=== PATIENT | female | born 1950 | race Caucasian/White ===

== ENCOUNTER → 2017-10-22 | Outpatient (CLI) | payer MEDICARE, OTHER ==
--- NOTE | 2017-10-22 16:00 | XCELERA REPORT ---
[address] [address] Lower Extremity Venous Evaluation Name: ZACK HELTON Age: 67 yrs Gender: Female : 1950 Patient Status: Outpatient Patient Location: Study Date: 10/22/2017 01:39 PM Procedure: Color flow and duplex imaging bilaterally of the veins of the lower extremities as well as the Common Femoral veins. Reason For Study: BLE PAIN Ordering Physician: TESS SRINIVASAN NP-C Performed By: Veena Steen Right Sided Venous Evaluation Normal vessel filling wall to wall, compression and augmentation as well as Colour flow down to the infrageniculate veins. Left Sided Venous Evaluation Normal vessel filling wall to wall, compression and augmentation as well as Colour flow down to the infrageniculate veins. Interpretation Summary No duplex evidence of DVT or obstruction in the bilateral lower extremities. : TESS SRINIVASAN DIRECTOR EXPERIMENTAL MEDICINEZachariah > Kd Dawson
== END ==
LOC: SP 13:00
PROVIDERS: ATTEND Nurse Practitioner Adult Health
DX: M79.604 Pain in right leg (principal)
CPT/HCPCS: 93970